=== PATIENT | male | born 1940 | race Caucasian/White ===

== ENCOUNTER → 2017-11-24 | Day surgery (SDC) | payer MEDICARE ==
[~2017-11-24] VITALS: Ht 182.9 cm; Wt 99.9 kg
[~2017-11-24] MED LIST: *morphine SULFATE 10 MG/ML PERIprocedure ONLY ONE; ACETAMINOPHEN 1000 MG/100 ML 100 ML IV ONE; ACETAMINOPHEN 1000 MG/100 ML VIAL IV ONE; ASPI81TA23 PO; ATOR40TA16 PO; BACT800T5 PO; CHLORHEXIDINE GLUCONATE 2 % 1 PACK (2 CLOTHS) TOPICAL PRN; COUM5TAB PO; DEXAMETHASONE SOD PHOS 4 MG/ML VIAL IV ONE; GLYCOPYRROLATE 1 MG/5 ML SYRINGE IV PUSH ONE; LACTATED RINGER'S 1000 ML IV PRN; LEVO175T2 PO; LIDOCAINE HCL 1% PF 5 ML SYRINGE OTHER ONE; MAGN400T2 PO; METOPROLOL TARTRATE 25 MG TAB PO PRN; MIRA3350 PO; MYCO360 PO; NEOSTIGMINE 5 MG/5 ML SYRINGE IV PUSH ONE; ONDANSETRON HCL 4 MG/2 ML VIAL IV ONE; ONDANSETRON ODT 4 MG TAB PO ONE; PHENYLEPH/NS 1000 MCG/10 ML SYR IV ONE; PIND5 PO; POVIDONE IODINE 5% (ANTISEPSIS KIT) 4 APPLICATIONS EACH NARE PRN; PROPOFOL 200 MG/20 ML AMP IV ONE; ROCURONIUM INJ 50 MG/5 ML SYRINGE IV PUSH ONE; SODIUM CHLORID 0.9% 500 ML IV PRN; TACR1CAP PO; TAMS5CAP PO; ceFAZolin 2 GM PREMIX 50 ML ONE; ceFAZolin 2 GM/NS PREMIX 100 ML IV SCH; ceFAZolin INJ 1,000 MG VIAL IV ONE; ePHEDrine/NS 25 MG/5 ML SYRINGE IV ONE; oxyCODONE/ACETAMINOPHEN 5 MG/325 MG TAB PO ONE
[2017-11-24 12:30] LABS: AUTOMATED NEUTROPHIL # 4.8 TH/MM3 (1.8-7.7); BASOPHIL # 0.1 TH/MM3 (0-0.2); BASOPHIL % 1.2 % (0.0-2.0); EOSINOPHIL # 0.1 TH/MM3 (0-0.4); EOSINOPHIL % 1.4 % (0.0-4.0); HEMATOCRIT 42.2 % (39.0-51.0); HEMOGLOBIN 14.3 GM/DL (13.0-17.0); LYMPH % 10.5 % (9.0-44.0); LYMPHOCYTE # 0.7 TH/MM3 (1.0-4.8); MEAN CELL VOLUME 94.2 FL (80.0-100.0); MEAN CORPUSCULAR HEMOGLOBIN 31.9 PG (27.0-34.0); MEAN CORPUSCULAR HGB CONC 33.8 % (32.0-36.0); MEAN PLATELET VOLUME 7.1 FL (7.0-11.0); MONO % 10.9 % (0.0-8.0); MONOCYTE # 0.7 TH/MM3 (0-0.9); PLATELET COUNT 217 TH/MM3 (150-450); RED BLOOD COUNT 4.48 MIL/MM3 (4.50-5.90); RED CELL DISTRIBUTION WIDTH 15.3 % (11.6-17.2); WHITE BLOOD COUNT 6.3 TH/MM3 (4.0-11.0)
[2017-11-24 12:38] LABS: INTERNATIONAL NORMALIZED RATIO 1.1 RATIO; PROTHROMBIN TIME - PATIENT 11.1 SEC (9.8-11.6)
[2017-11-24 12:47] LABS: ALBUMIN 3.9 GM/DL (3.4-5.0); ALKALINE PHOSPHATASE 92 U/L (45-117); ALT (GPT) 23 U/L (12-78); AST (GOT) 28 U/L (15-37); BLOOD UREA NITROGEN 16 MG/DL (7-18); CALCIUM 9.2 MG/DL (8.5-10.1); CREATININE 1.67 MG/DL (0.60-1.30); GLOMERULAR FILTRATION RATE 40 ML/MIN (>89); GLUCOSE,RANDOM 161 MG/DL (74-106); TOTAL BILIRUBIN ADULT 1.1 MG/DL (0.2-1.0); TOTAL PROTEIN 8.3 GM/DL (6.4-8.2)
[2017-11-24 12:48] LABS: BICARBONATE 21.3 MEQ/L (21.0-32.0); CHLORIDE 107 MEQ/L (98-107); SODIUM (NA) 139 MEQ/L (136-145)
--- NOTE | 2017-11-24 17:10 | HHI.PR ---
Immediate Post Op Note Procedure Date: November 24, 2017 Pre Op Diagnosis: bilateral inguinal hernia Post Op Diagnosis: same, direct Surgeon: Vasiliy Mott MD Logistics Manager(s): Dr. Degroot Procedure: complex bilateral hernia repair left laparoscopic MELI, Right open with mesh Findings: bilateral direct inguinal hernias, tissue plane scarring at previous right kidney transplant site Complications: none Specimen(s) removed: none Estimated blood loss: 10cc Anesthesia: General Drains: None Patient to: PACU Patient Condition: Good Vasiliy Mott MD November 24, 2017 17:10
[2017-11-24 18:15] VITALS: BP 165/85; PULSE 74; RESP 18; TEMP 97; O2SAT 94
--- NOTE | 2017-11-26 10:26 | MP ---
cc: Vasiliy Mott MD DATE OF OPERATION: 11/24/2017 PREOPERATIVE DIAGNOSIS: Bilateral inguinal hernias. POSTOPERATIVE DIAGNOSIS: Bilateral inguinal hernias, bilateral direct inguinal hernias, complex. PROCEDURE PERFORMED: 1. Laparoscopic left inguinal hernia repair, MELI. 2. Open right inguinal hernia repair, complex. SURGEON: Dr. Vasiliy Mott. OSTEOLOGIST: Dr. Louie Degroot. Dr. Degroot was necessarily due to the complexity of this surgery. Dr. Degroot assisted with camera control and retraction and assisted with suturing. ANESTHESIA: GETA. IV FLUIDS: See anesthesia sheet. ESTIMATED BLOOD LOSS: 5 mL. DRAINS: None. COMPLICATIONS: None. WOUND CLASSIFICATION: Clean. SPECIMENS REMOVED: None. FINDINGS: Left inguinal hernia, a direct inguinal hernia, unable to use the typical approach of preperitoneal, therefore an intra-abdominal MELI open procedure necessary on the right due to a previous history of kidney transplant and violation of preperitoneal fascial planes. Good hemostasis. INDICATIONS FOR PROCEDURE: The is a 77-year-old male who presents with bilateral inguinal hernias, right greater than left. The patient has multiple comorbidities including blood thinner and history of kidney transplant on the right with a large open kidney incisional scar. Initial decision was possible preperitoneal approach, possible open approach, possible laparoscopic approach needed to be modified due to the complexity of the anatomy and difficulty of tissue planes. DETAILS OF PROCEDURE: The patient was taken to the operating suite, placed in supine position, prepped and draped in usual sterile fashion after induction of general endotracheal anesthesia. A brief time-out done staying correct patient, procedure surgical site, we were all agreed with this. Attention first directed to the umbilicus where local anesthetic was injected. An 11 blade was used to make a small incision around the umbilicus. The 5 mm Visiport Optiview port was used to enter the abdomen safely. Abdomen insufflated to 15 mm pneumoperitoneum. On cursory inspection, the patient was placed in Trendelenburg. There was noted to be bilateral inguinal hernias. The kidney transfer was noted and identified and visualized. There were noted to be extraperitoneal vessels leading into the preperitoneal space. At this point, original consideration for preperitoneal approach was abandoned due to the complexity and difficulty of violated tissue planes. Decision was made to commence a surgical procedure with an intraabdominal approach with a MELI approach on the left and then an open approach on the right. The laparoscopic abdominal approach was started with initially placing two 5 mm ports on either side of the umbilicus after injection of local anesthetic. The umbilical port was upsized to a 12 mm port. DESCRIPTION OF PROCEDURE: The peritoneum was identified over the hernia sac and inguinal region. This was incised using monopolar Bovie cautery. Superior and inferior peritoneal flaps were created and dissection was done in order to identify the hernia defect and proper landmarks. The hernia sac was identified and noted to be on the medial side of the gonadal vessels and vas deferens in the direct inguinal space. Also, examination of the indirect and femoral spaces were noted without evidence of hernia defects at this time. The hernia sac was dissected free and reduced back into the abdominal cavity and dissected free from the gonadal vessels and VAS. Identification of the pubic symphysis ensured that all preperitoneal fat was dissected off and we had good identification of all structures and a good landing zone for placement of mesh and tacks. Once we had reduced the hernia sac and dissected the remainder of the free space, we obtained a 3 x 6 atrium mesh and it was cut to appropriate size. The camera was removed and the mesh was placed in through the 12 mm port. The camera was reinserted. The mesh was placed into the preperitoneal space placing 2 tacks above ASIS, 3 tacks medially just above the pubic tubercle and a third tack anterior on the rectus muscle. At this point, again we did not note any herniations of other spaces; however, the mesh did appropriately cover all potential defects as well. Next, using a 2-0 Polysorb, intracorporal suture was used with a Lapra-Ty in order to run the peritoneum and reapproximate this to cover the mesh appropriately. Following this, a pneumoperitoneum was removed and ports were removed. The umbilical port was closed with a 0 Vicryl in huruxg-me-mteoi fashion and 4-0 Monocryl was done to all port site subcuticular incisions. Next, attention was then directed to the right inguinal hernia. The open approach was done. The pubic tubercle and ASIS were palpated to identified landmarks. An oblique incision was made approximately 5 cm with a 15 blade. Prior local anesthetic injected. Further dissection was done with electro Bovie electrocautery down to the external fascia. The planes had some scarring; however, the external fascia was identified. A small mal was made in the external fascia in the direction of the fibers. Metzenbaum scissors were used to incise the external fascia in the direction of the external ring and also proximally and laterally to open this external fascia up. The cord structures were identified, and the pubic tubercle was also palpated and identified. Interdigitation used in order to mobilize the cord structures and hernia sac. Hernia noted to be more of a direct hernia and the inguinal floor noted to be substantially weak as well with tissue bulging. Once the vas and gonadal vessels were mobilized, a [place] was used for assistance in mobilization and retraction. The hernia sac was reduced. Also, palpation for indirect spaces without evidence of hernia and femoral space as well had no evidence of herniation. A 3 x 6 atrium mesh was obtained and cut to taper size. The mesh was also split longitudinally in order to facilitate cord structures and when mesh was placed recreate the internal ring. The mesh was placed and a Surgi-Tacker was used in order to tack the inferior medial portion of the mesh to the pubic tubercle. 0 Ethibond was used in interrupted fashion medially to attach the mesh to the conjoined tendon and reinforce the floor. The shelving edge was also used laterally in order to tack the mesh in interrupted fashion this way as well. The 2 tails of the mesh were cut to a slightly shorter size and placed around the vas and gonadal structures in order again to recreate the internal ring. Once the hernia had been appropriately reduced and mesh was secured and laid flat in place, the external oblique fascia was closed in running fashion with 3-0 Vicryl. Local anesthetic injected. Hemostasis was obtained. The Vincent's fascia was closed with 3-0 Vicryl followed by 4-0 Monocryl for a subcuticular suture. Sterile dressings including Mastisol and Steri-Strips were placed. All lap and instrument counts were correct at the end of the procedure. The patient tolerated the procedure well. There were no intraoperative complication. The patient was extubated and taken stable to the PACU. MD MENDEZ Schrader/KITTY , 08:45 AM , 10:25 AM
--- NOTE | 2017-11-26 12:09 | EKG ---
Date Performed: 11/24/2017 Time Performed: 12:53:19 PTAGE: 77 years EKG: Sinus rhythm WITH OCCASIONAL SUPRAVENTRICULAR PREMATURE COMPLEXES BORDERLINE ECG PREVIOUS TRACING : 07/17/2004 19.21 DOCTOR: Jer Sosa Interpretating Date/Time 11/26/2017 11:58:40
== END | disposition home or self-care (01) ==
LOC: HSDC 11:20
PROVIDERS: ATTEND Surgery
DX: K40.20 Bilateral inguinal hernia, without obstruction or gangrene, not specified as recurrent (principal); I10 Essential (primary) hypertension; I48.91 Unspecified atrial fibrillation; Z79.01 Long term (current) use of anticoagulants; Z94.0 Kidney transplant status
CPT/HCPCS: 00830; 49505; 49650; 80053; 85025; 85610; 93005; C1781; J0131; J0690; J1100; J2270; J2370; J2405; J2710; J3010; J7120